=== PATIENT | female | born 1975 | race Caucasian/White ===

== ENCOUNTER 2016-09-13 21:15 | Emergency (ER) | payer OTHER | END 2016-09-13 21:35 | disposition home or self-care (01) | LOC: ER 21:15 | DX: J06.9 Acute upper respiratory infection, unspecified (principal); J02.9 Acute pharyngitis, unspecified; R05 Cough; F17.210 Nicotine dependence, cigarettes, uncomplicated ==

== ENCOUNTER 2016-10-08 18:55 | Emergency (ER) | payer OTHER | END 2016-10-08 19:26 | disposition home or self-care (01) | LOC: ER 18:55 | DX: J06.9 Acute upper respiratory infection, unspecified (principal); J32.9 Chronic sinusitis, unspecified; R05 Cough; F17.210 Nicotine dependence, cigarettes, uncomplicated | CPT/HCPCS: 99282 ==

== ENCOUNTER 2016-11-14 18:11 | Emergency (ER) | payer OTHER | END 2016-11-14 19:55 | disposition home or self-care (01) | LOC: ER 18:11 | DX: M77.52 Other enthesopathy of left foot and ankle (principal); M79.672 Pain in left foot; F17.210 Nicotine dependence, cigarettes, uncomplicated; Z88.5 Allergy status to narcotic agent | CPT/HCPCS: 73630; 99070; 99283 ==

== ENCOUNTER 2016-11-17 21:45 | Emergency (ER) | payer OTHER | END 2016-11-17 22:07 | disposition home or self-care (01) | LOC: ER 21:45 | DX: S93.601D Unspecified sprain of right foot, subsequent encounter (principal); M79.671 Pain in right foot; F17.210 Nicotine dependence, cigarettes, uncomplicated; Z79.3 Long term (current) use of hormonal contraceptives | CPT/HCPCS: 99282 ==